=== PATIENT | female | born 1955 | race Caucasian/White ===

== ENCOUNTER 2017-02-26 19:08 | Inpatient (IN) ==
[2017-02-26 20:09] LABS: MANUAL DIFF NEEDED? NO
[2017-02-26 20:15] LABS: BASO% 0.3 % (0.0-0.8); EOS# 0.45 X1000 (0.0-0.7); EOS% 3.7 % (0.0-10.0); HEMATOCRIT 37.6 % (37.0-47.0); HEMOGLOBIN 12.3 g/dL (12.0-16.0); IMM GRAN# 0.02 X1000 (0.0-0.04); IMM GRAN% 0.2 % (0.0-0.5); LYMPH% 35.7 % (20.5-51.1); MCH 27.6 PG (27-31); MCHC 32.7 g/dL (33-37); MCV 84.3 FL (81-99); MONO# 0.79 X1000 (0.11-0.59); MONO% 6.6 % (1.7-9.3); MPV 9.5 FL (7.4-10.4); NEUT% 53.5 % (42.2-75.2); PLT 343 X1000 (130-400); RBC 4.46 XMIL (4.2-5.4)
[2017-02-26 20:21] LABS: INR 1.07; PROTIME 11.3 Seconds (9.2-11.7); PTT 25.4 Seconds (22.0-36.0)
[2017-02-26] MEDS ORDERED: MORPHINE IV ONE (20:30)
[2017-02-26] MEDS ORDERED: NITROGLYCERIN TOP ONE (20:30)
[2017-02-26] MEDS ORDERED: ZOFRAN IV ONE (20:30)
--- NOTE | 2017-02-26 20:35 | PROVIDER DOCUMENTATION ---
HPI-Chest Pain - General Chief Complaint: Chest Pain Stated Complaint: cp Time Seen by Provider: 02/26/17 20:21 Allergies/Adverse Reactions: Patient Allergies Allergy/AdvReac Type Severity Reaction Status Date / Time metronidazole [From Flagyl] Allergy ITCHING Verified 02/26/17 20:22 Home Medications: Home Medication List Medication Instructions Recorded Confirmed Last Taken Type Insulin Lispro [Humalog] 10 unit SUBQ TID 04/26/13 12/22/16 12/21/16 19:00 History Metformin [Glucophage] 1,000 mg PO BID 04/26/13 12/22/16 12/21/16 19:00 History Metoprolol [Lopressor] 25 mg PO DAILY 04/26/13 12/22/16 12/22/16 06:30 History Glimepiride 4 mg PO DAILY 10/19/16 12/22/16 12/21/16 19:00 History Insulin Glargine [Lantus] 28 unit SUBQ QHS 10/19/16 12/22/16 12/21/16 19:00 History Aspirin 81 mg PO DAILY 12/21/16 12/22/16 12/14/16 09:00 History Atorvastatin Calcium [Lipitor] 40 mg PO QHS 12/21/16 12/22/16 12/22/16 05:00 History Escitalopram Oxalate [Lexapro] 20 mg PO DAILY 12/21/16 12/22/16 12/22/16 05:00 History Famotidine 40 mg PO DAILY 12/21/16 12/22/16 12/22/16 06:30 History Fluticasone/Vilanterol [Breo 1 each IH DAILY 12/21/16 12/22/16 12/21/16 09:00 History Ellipta 100-25 Mcg INH] Lorazepam 0.5 mg PO PRN PRN 12/21/16 12/22/16 12/22/16 05:00 History Montelukast Sodium [Singulair] 10 mg PO DAILY 12/21/16 12/22/16 12/22/16 05:00 History Omeprazole [Prilosec] 40 mg PO DAILY 12/21/16 12/22/16 12/21/16 21:00 History Hydrocodone/APAP 10 mg/325 mg 1 each PO Q4H PRN PRN #20 tablet 12/23/16 Unknown Rx [Berwick-10] Ondansetron HCl [Zofran] 4 mg PO Q4H PRN PRN #10 tablet 12/23/16 Unknown Rx - History of Present Illness-CP Nature of Presenting Problem: Pt comes in s/p charan in Nov. stating that she has just not felt well since then. She has had N/V/D since then. PT started tonight stating that she "just didn't feel right" she states that she feels like her "heart just doesn't feel right" she said that there was some pain that felt similar to when she had her CABG and that it radiated to her back. Review of Systems - Adult - REVIEW OF SYSTEMS - ADULT Constitutional: reports: no symptoms reported. denies: chills, fever, fatique, night sweats, weight gain, weight loss Eyes: reports: no symptoms reported. denies: discharge, dry eyes, decreased vision, blurred vision, double vision, eye pain, redness Ears, Nose, Mouth & Throat: reports: no symptoms reported. denies: ear discharge, ear pain, hearing loss, tinnitus, epistaxis, sinus problem, nose pain , mouth/dental pain, mouth swelling, hoarseness, throat pain, throat swelling Cardiovascular: reports: see HPI, chest pain, orthopnea, palpitations. denies: edema, heart murmur, irregular heart rate, poor circulation, PND, syncope Respiratory: reports: see HPI, cough, shortness of breath. denies: chronic cough, dyspnea on exertion, excessive sputum production, hemoptysis, pleurisy, wheezing Gastrointestinal: reports: see HPI, diarrhea, nausea, poor appetite, vomiting. denies: abdominal pain, hematemesis, constipation, difficulty swallowing, frequent heartburn, rectal bleeding Genitourinary: reports: no symptoms reported. denies: dysuria, frequency, flank pain, frequent UTI's, hematuria, hesitency, incontinence, urinary retention, urgency Musculoskeletal: reports: no symptoms reported. denies: bone pain, back pain, frequent leg cramps, joint pain, joint swelling, muscle aches, muscle weakness, neck pain Integumentary: reports: no symptoms reported. denies: hives, hair loss, itching , mole changes, nail changes, rash, skin sores/ulcer, skin thickening Neurological: reports: see HPI, dizziness/vertigo. denies: ataxia, headache/ migraines, loss of balance, numbness, seizure, slurred speech, syncope, tremors Psychiatric: reports: no symptoms reported. denies: anxiety, anti-depressant use, alcohol/drug dependence, depression, emotional problems, insomnia, panic attacks, suicidal thoughts Endocrine: reports: no symptoms reported. denies: change in skin pigment, excessive sweating, goiter, cold intolerance, heat intolerance, increased hunger , increased thirst, polyuria Hematologic/Lymphatic: reports: no symptoms reported. denies: blood clots, easy bruising, lymphedema, swollen lymph nodes, transfusions Allergic/Immunologic: reports: no symptoms reported. denies: allergic reactions , allergic rhinitis, asthma, eczema, frequent infections, hives, positive PPD, urticaria All Other Systems: Reviewed and Negative Past History - Adult - PAST MEDICAL HISTORY-ADULT Review of Records: reports: Old Records Reviewed, Nursing Assessment Review, Medications Reviewed, Social history reviewed & non-contributory. Major Childhood Illnesses: reports: denies history Cardiovascular: reports: CAD, HTN, hyperlipidemia, MS Respiratory: reports: denies history Gastrointestinal: reports: denies history Obstetrical/Gynecological: reports: denies history Genitourinary: reports: denies history Musculoskeletal: reports: denies history Neurological: reports: denies history Psychiatric: reports: depression Endocrine/Immune: reports: Diabetes Other Conditions: reports: denies history - PRIOR SURGERIES/PROCEDURES Surgical/Procedure History: reports: CABG, cholecystectomy, cardiac stent (x 3 years ago), hernia repair - IMMUNIZATION STATUS Childhood Immunizations: See Nurse Assessment Flu Vaccine: See Nurse Assessment - FAMILY HISTORY Family History: reviewed, not pertinent - SOCIAL HISTORY Smoking: denies Substance Use: none/never Alcohol Use Frequency: never Living Situation: family Physical Exam-General - PHYSICAL EXAM-ADULT Initial Vital Signs Reviewed: Yes - CONSTITUTIONAL General Appearance: alert, no apparent distress, anxious - EYES Eyes: PERRL/EOMI, pink conjunctivae - HEAD, EARS, NOSE, MOUTH & THROAT HENMT: normocephalic/atraumatic, moist mucous membranes, normal ENT inspection, TMs normal, pharynx normal - NECK Neck: non-tender, full range of motion, supple, normal inspection - RESPIRATORY Respiratory: chest non-tender, lungs clear, normal breath sounds, no pleuratic chest pain, no respiratory distress, no accessory muscle use - CARDIOVASCULAR Cardiovascular: normal peripheral pulses, regular rate, rhythm, no edema, no gallop, no JVD, no murmur - GASTROINTESTINAL (ABDOMEN) Abdominal Exam: normal bowel sounds, non tender, soft, no organomegaly, no pulsatile mass - LYMPHATIC Lymphatic: no adenopathy - MUSCULOSKELETAL Back Exam: normal inspection, no CVA tenderness, no vertebral tenderness Extremity: normal range of motion, non-tender, normal gait, normal inspection, no pedal edema, no calf tenderness, normal capillary refill, pelvis stable - SKIN Integumentary: normal color, normal turgor, warm/dry - NEUROLOGIC Neurologic: 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, no motor/sensory deficits - PSYCHIATRIC Psych/Mental Status: normal thought content, normal thought process, oriented x 3, anxious Progress - PLAN OF CARE/RESULTS Progress/Plan/Lab Results: Vital Signs - 8 hr 02/26/17 19:21 Temperature 98.0 F Pulse Rate 103 H Respiratory Rate 20 Blood Pressure 142/78 O2 Sat by Pulse Oximetry 98 Laboratory Results - last 24 hr 02/26/17 02/26/17 02/26/17 19:21 19:21 19:21 WBC 12.03 H RBC 4.46 Hgb 12.3 Hct 37.6 MCV 84.3 MCH 27.6 MCHC 32.7 L RDW Std Deviation 14.2 Plt Count 343 MPV 9.5 Immature Gran % (Auto) 0.2 Neut % (Auto) 53.5 Lymph % (Auto) 35.7 Lasalle % (Auto) 6.6 Eos % (Auto) 3.7 Baso % (Auto) 0.3 Immature Gran # (Auto) 0.02 Neut # (Auto) 6.43 Lymph # (Auto) 4.30 H [place] # (Auto) 0.79 H Eos # (Auto) 0.45 Baso # (Auto) 0.04 PT INR PTT (Actin FS) D-Dimer 0.36 Sodium 135 L Potassium 4.5 Chloride 95 L Carbon Dioxide 5 L Anion Gap 35 BUN 10 Creatinine 0.6 Estimated GFR/1.73 m2 > 60 BUN/Creatinine Ratio 17 Glucose 281 H Calculated Osmolality 279 Calcium 9.7 Magnesium 1.4 L Total Bilirubin 0.27 AST 50 H ALT 28 Alkaline Phosphatase 63 Creatine Kinase 31 Troponin T Lqs-T-Tyokltaxdru Pept Total Protein 7.2 Albumin 4.1 Globulin 3.1 Albumin/Globulin Ratio 1.3 02/26/17 02/26/17 02/26/17 19:21 19:21 19:21 WBC RBC Hgb Hct MCV MCH MCHC RDW Std Deviation Plt Count MPV Immature Gran % (Auto) Neut % (Auto) Lymph % (Auto) Lasalle % (Auto) Eos % (Auto) Baso % (Auto) Immature Gran # (Auto) Neut # (Auto) Lymph # (Auto) Las[place] # (Auto) Eos # (Auto) Baso # (Auto) PT 11.3 INR 1.07 PTT (Actin FS) 25.4 D-Dimer Sodium Potassium Chloride Carbon Dioxide Anion Gap BUN Creatinine Estimated GFR/1.73 m2 BUN/Creatinine Ratio Glucose Calculated Osmolality Calcium Magnesium Total Bilirubin AST ALT Alkaline Phosphatase Creatine Kinase Troponin T < 0.010 Ubs-Y-Txeheyvwufi Pept 86 Total Protein Albumin Globulin Albumin/Globulin Ratio 02/26/17 22:55 WBC RBC Hgb Hct MCV MCH MCHC RDW Std Deviation Plt Count MPV Immature Gran % (Auto) Neut % (Auto) Lymph % (Auto) Lasalle % (Auto) Eos % (Auto) Baso % (Auto) Immature Gran # (Auto) Neut # (Auto) Lymph # (Auto) [place] # (Auto) Eos # (Auto) Baso # (Auto) PT INR PTT (Actin FS) D-Dimer Sodium Potassium Chloride Carbon Dioxide Anion Gap BUN Creatinine Estimated GFR/1.73 m2 BUN/Creatinine Ratio Glucose Calculated Osmolality Calcium Magnesium Total Bilirubin AST ALT Alkaline Phosphatase Creatine Kinase Troponin T < 0.010 Rhd-W-Ypkzpdkpiwy Pept Total Protein Albumin Globulin Albumin/Globulin Ratio Orders Category Date Time Status Admit - [facility] Routine AdmDCTranf 02/27/17 00:21 Ordered Activity - Up Ad Miesha ORDERED Care 02/27/17 00:21 Active Call Provider ROUTINE Care 02/27/17 00:21 Active Cardiac Monitoring DIRECTED Care 02/26/17 20:02 Completed FSBS/Accucheck Result AC + HS Care 02/27/17 00:21 Active Neurological Check PRN Care 02/27/17 00:21 Active Saline Loc NOW Care 02/26/17 20:02 Completed Vital Signs Order Q 8-HR .ASSESS Care 02/27/17 00:21 Active Diabetic Diet Diet 02/27/17 Breakfast Active CHEST-PORTABLE [RAD] Stat Exams 02/26/17 20:09 Taken BMP [BASIC METABOLIC PANEL] [CHEM] Stat Lab 02/27/17 00:10 Uncollected CBC WITH ELECTRONIC DIFF [HEME] Stat Lab 02/26/17 19:21 Completed CBC WITH NO DIFF [HEME] Routine Lab 02/27/17 06:00 Ordered CK PROFILE [SP CHEM] Routine Lab 02/27/17 06:00 Ordered CK PROFILE [SP CHEM] Stat Lab 02/26/17 19:21 Completed COMPREHENSIVE METABOLIC PANEL [CHEM] Routine Lab 02/27/17 06:00 Ordered COMPREHENSIVE METABOLIC PANEL [CHEM] Stat Lab 02/26/17 19:21 Completed D-DIMER [CHEM] Stat Lab 02/26/17 19:21 Completed Ketone [ACETONE SERUM] [CHEM] Stat Lab 02/27/17 00:11 Uncollected LACTATE, PLASMA [CHEM] Urgent Lab 02/27/17 00:11 Uncollected MAGNESIUM [CHEM] Stat Lab 02/26/17 19:21 Completed PRO B-NATRIURETIC PEPTIDE Stat Lab 02/26/17 19:21 Completed PROTIME WITH INR [COAG] Stat Lab 02/26/17 19:21 Completed PTT [COAG] Stat Lab 02/26/17 19:21 Completed TROPONIN T Routine Lab 02/27/17 06:00 Ordered TROPONIN T Stat Lab 02/26/17 19:21 Completed TROPONIN T Stat Lab 02/26/17 22:55 Completed 0.9% Sodium Chloride Inj [Ns] 1,000 ml Med 02/27/17 00:21 Active IV 75 mls/hr 0.9% Sodium Chloride Inj [Ns] 500 ml Med 02/26/17 21:51 Discontinued IV 999 mls/hr Acetaminophen [Tylenol] Med 02/27/17 00:21 Active 650 mg PO Q6H PRN PRN Aspirin EC Med 02/27/17 09:00 Active 81 mg PO DAILY Hydralazine [Apresoline] Med 02/26/17 21:51 Discontinued 10 mg IV NOW ONE Insulin Human Regular [Humulin R] Med 02/27/17 07:00 Ordered See Protocol SUBQ 0700,1100,1600,2100 LISINOpril [Prinivil] Med 02/27/17 09:00 Ordered 10 mg PO DAILY Magnesium Oxide [Mag-Ox] Med 02/26/17 21:15 Discontinued 800 mg PO NOW ONE Morphine Med 02/26/17 20:30 Discontinued 2 mg IV NOW ONE Morphine Med 02/27/17 00:21 Active 2 mg IV Q4H PRN PRN Nitroglycerin Med 02/26/17 20:30 Discontinued 1 inch TOP NOW ONE Nitroglycerin Med 02/27/17 00:21 Ordered 1 inch TOP Q6H Ondansetron [Zofran] Med 02/26/17 20:30 Discontinued 4 mg IV NOW ONE Ondansetron [Zofran] Med 02/27/17 00:21 Active 4 mg IV Q4H PRN PRN Pantoprazole [Protonix] Med 02/27/17 00:21 Ordered 40 mg IV Q24H Sodium Chloride 0.9% Med 02/27/17 00:21 Ordered 10 ml INJ DIRECTED Telemetry [OM.EQ] Routine Oth 02/27/17 00:21 Active Echo Spec/Color Dop W/O Contra Routine Ther 02/27/17 08:00 Ordered Transfer/Admit Order [TRANSFER] Routine Transfer 02/26/17 23:13 Completed Transfer/Admit Order [TRANSFER] Routine Transfer 02/26/17 23:53 Completed Result Diagrams: 02/26/17 19:21 02/26/17 19:21 - XRAY 1 XRAY Study: Chest Impression: Normal XRAY Interpretation: elevated right hemidiaphram (hcb) - CONSULTS/PCP/HOSPITALIST Notification #1 *Consult/PCP/Hospitalist*: penot Consult Disposition: Will see in ED, Admit Departure - Departure Time of Disposition Decision: 00:32 DIAGNOSIS: Chest pain Qualifiers: Chest pain type: unspecified Qualified Code(s): R07.9 - Chest pain, unspecified Disposition: ADMITTED INPATIENT 09 Certified Medical Emergency: Emergent Condition: Good
[2017-02-26 20:56] LABS: AGAP 35; ALBUMIN 4.1 g/dL (3.5-5.0); ALKALINE PHOSPHATASE 63 U/L (32-104); BUN 10 mg/dL (8-22); CALCIUM 9.7 mg/dL (8.8-10.2); CHLORIDE 95 mmol/L (98-107); CK PROFILE 31 U/L (24-173); COSMO 279; GOT 50 U/L (10-30); GPT 28 U/L (10-36); MAGNESIUM 1.4 mg/dL (1.5-2.7); POTASSIUM 4.5 mmol/L (3.5-5.1); SODIUM 135 mmol/L (136-145); TCO2 5 mmol/L (25-35); TOTAL BILIRUBIN 0.27 mg/dL (0.20-1.00); TOTAL PROTEIN 7.2 g/dL (6.3-8.3)
[2017-02-26] MEDS ORDERED: MAG-OX PO ONE (21:15)
[2017-02-26] MEDS ORDERED: APRESOLINE IV ONE (21:51)
[2017-02-26] MEDS ORDERED: NS 500 ML IV ONE (21:51)
--- NOTE | 2017-02-26 22:13 | ED EKG INTERP ---
This chart was entered by Raquel Simmons Scribe, acting as scribe for Yayo Teresa MD. EKG Interpretation - EKG Time of EKG reading by physician:: 19:11 EKG Read and Signed by:: Yayo Teresa EKG Interpretation (*Must complete 3 of following elements*): Abnormal ( Possible anterior infarct, age undetermined) Rate: 107 Rhythm: Sinus tachycardia This chart was documented by the indicated scribe, (Raquel Simmons Scribe) and accurately reflects the services I performed and decisions made by Malick leong Robert H., MD, as attested by the provider's signature.
[2017-02-27] MEDS ORDERED: ZOFRAN IV PRN (00:21)
[2017-02-27] MEDS ORDERED: MORPHINE IV PRN (00:21)
[2017-02-27] MEDS ORDERED: NS 1,000 ML IV ONE (00:21)
[2017-02-27] MEDS: SODIUM CHLORIDE 0.9% INJ SCH (01:27)
[2017-02-27] MEDS: NITROGLYCERIN TOP SCH ×4 (01:28→18:11)
[2017-02-27] MEDS: PROTONIX IV SCH (01:35)
[2017-02-27 02:53] LABS: AGAP 16; BUN 9 mg/dL (8-22); CALCIUM 9.3 mg/dL (8.8-10.2); CHLORIDE 98 mmol/L (98-107); COSMO 281; POTASSIUM 4.4 mmol/L (3.5-5.1); SODIUM 137 mmol/L (136-145); TCO2 23 mmol/L (25-35)
--- NOTE | 2017-02-27 04:11 | HISTORY AND PHYSICAL ---
CHIEF COMPLAINT: Diarrhea and chest pain. HISTORY OF PRESENT ILLNESS: A 61-year-old female with history of CAD status post CABG. She has been having intermittent nausea, vomiting and diarrhea since her cholecystectomy earlier this year for which she has had in November. She had gastroparesis and this has been followed by Dr. Soriano. In any case, she had several episodes of diarrhea today. She did not do well but then she started developing chest pain in the midsternum radiating to the left and to the back. The back pain component is similar to her previous angina, anginal equivalent when she had her CABG in about 5 years ago. Pain is sharp, intense and it radiates as described. Some nausea as well. Pain has essentially resolved after treatment. She got nitroglycerin, morphine, hydralazine because she has been hypertensive. Patient placed in observation for chest pain. PAST MEDICAL HISTORY: 1. Diabetes, does look insulin dependent. 2. CAD status post CABG. 3. Dyslipidemia. 4. Gastroparesis. PAST SURGICAL HISTORY: She has had a cholecystectomy this year, 2014. CABG was in I guess 2011. FAMILY HISTORY: Positive for CAD in father, mother and 2 brothers. Father also had lung cancer but he in his 90s. Mother had an aneurysm when she was around 48, presumably thoracic or abdominal. SOCIAL HISTORY: No tobacco or ethanol. ALLERGIES: Metronidazole. MEDICATIONS: List is being compiled. REVIEW OF SYSTEMS: Otherwise negative. All other systems reviewed. PHYSICAL EXAMINATION: VITAL SIGNS: Blood pressure 142/78, heart rate of 103, respiratory rate of 20, temperature 98 degrees. GENERAL: A well-developed female, no acute distress. HEAD: Normocephalic, atraumatic. EYES: Pupils equal, round, reactive to light. Extraocular movements were intact. EAR/NOSE/THROAT: She had moist mucous membranes. NECK: Supple. CARDIOVASCULAR: Regular rate and rhythm. No murmurs, gallops, or rubs. PULMONARY: Exam with bilateral breath sounds. Clear to auscultation. GASTROINTESTINAL: Soft, nontender, nondistended. Bowel sounds are positive. EXTREMITIES: No clubbing or cyanosis. LYMPHATIC: No peripheral edema. NEUROLOGICAL: Nonfocal. LABORATORY DATA: Mag of 1.4. Glucose 281. White count 12. EKG was really I think unremarkable. I did not appreciate any profound ischemic changes, just sinus tachycardia. We did a chest x-ray and I believe reportedly no airspace disease. ASSESSMENT: A 61-year-old female with coronary artery disease status post coronary artery bypass graft presenting with chest pain. PROBLEM: 1. Chest pain. It is atypical but it is similar to her anginal equivalent so we will rule out and follow clinically. She reports having a stress test and it looks like she had one in it looks like October, about 4 months ago, and I believe that was negative. She had an echo but she has not had one in 2 years here, but her stress test looked normal. She had a stress test about 4 months ago which was negative. EF was good. So we will get Cardiology opinion tomorrow after rule out. I imagine she probably can go home. Repeat her echo. 2. Hypertension is not well controlled at least not currently. She has responded to nitroglycerin. At home she is just on metoprolol but she is not taking anything for kidney function. I am going to start an HERIBERTO inhibitor on her just because of her diabetic history. 3. Gastroesophageal reflux disease, gastroparesis. We will continue her medication. She has had chronic GI issues. She is being followed by Dr. Soriano and Dr. Chowdary. We will continue to monitor. cc: MD Royal Gannon MD
[2017-02-27] MEDS: HUMULIN R SUBQ SCH ×4 (06:33→21:00)
[2017-02-27 06:48] LABS: HEMATOCRIT 35.7 % (37.0-47.0); HEMOGLOBIN 11.3 g/dL (12.0-16.0); MCH 27.6 PG (27-31); MCHC 31.7 g/dL (33-37); MCV 87.3 FL (81-99); MPV 9.2 FL (7.4-10.4); RBC 4.09 XMIL (4.2-5.4)
[2017-02-27 07:00] LABS: AGAP 12; ALBUMIN 3.7 g/dL (3.5-5.0); ALKALINE PHOSPHATASE 50 U/L (32-104); BUN 8 mg/dL (8-22); CALCIUM 8.9 mg/dL (8.8-10.2); CHLORIDE 103 mmol/L (98-107); CK PROFILE 25 U/L (24-173); COSMO 282; GOT 43 U/L (10-30); GPT 26 U/L (10-36); POTASSIUM 4.7 mmol/L (3.5-5.1); SODIUM 139 mmol/L (136-145); TCO2 24 mmol/L (25-35); TOTAL BILIRUBIN 0.37 mg/dL (0.20-1.00); TOTAL PROTEIN 6.6 g/dL (6.3-8.3)
[2017-02-27] MEDS: ASPIRIN EC PO SCH (08:17)
[2017-02-27] MEDS: PRINIVIL PO SCH (08:17)
--- NOTE | 2017-02-27 11:27 | Diag Imaging Result Document ---
PROCEDURE NAME: CHEST-PORTABLE - 02/26/2017 PORTABLE CHEST X-RAY: COMPARISON: 10/19/2016. FINDINGS: Lung volumes are severely low with right hemidiaphragm elevation, similar to prior. Stable CABG changes. Heart size and pulmonary vascularity is normal. The lungs are grossly clear. IMPRESSION: No acute disease or significant change from prior.
--- NOTE | 2017-02-27 12:55 | PROGRESS NOTE ---
DATE: 02/27/2017 SUBJECTIVE: She was admitted for early this morning for Dr. Villafana. A 61-year-old with history of coronary artery disease status post CABG. She has been having intermittent nausea, vomiting, and diarrhea since her cholecystectomy earlier this year, but yesterday got pain that started in the mid chest and it radiated to the back. She said it was similar to the pain she had before she had her stents back in 2011, I believe. She had a cholecystectomy in November. She has had some abdominal bloating. She is followed by Dr. 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 She had several episodes of diarrhea a day. She started developing the midsternal chest discomfort that went to the back and it got pretty severe. Because she graded it to a similar pain in which she had previous angina. Before she had her CABG about 5 years ago. Pain was sharp and radiates to the back with nausea. It essentially resolved after some nitroglycerin, morphine, and hydralazine because she was hypertensive. PAST MEDICAL HISTORY: 1. Diabetes mellitus, type 2. 2. Coronary artery disease. 3. Dyslipidemia. 4. Gastroparesis. PAST SURGICAL HISTORY: Status post cholecystectomy in 2014, CABG in 2011. Today, she says the pain is resolved. She is not having any pain at the present time. Feels pretty comfortable. She is not hungry. She has been eating well. She thinks she has lost about 10 pounds in the last couple of months. She says she just does not want to eat because of the discomfort and poor appetite. OBJECTIVE: Temperature is 98.0 degrees; remains afebrile. Pulse 70, respirations 16, blood pressure 128/69. CVP less than 6 cm. Lungs are clear in all lung bailey. Cardiovascular: Regular rhythm and rate without murmur or S3. Abdomen is soft. Skin is warm and dry. No pedal edema. LABORATORY DATA: Lab reviewed. White count 9,110. Hematocrit 35, platelet count 282,000. Chemistry: Sodium 139, potassium 4.7, chloride 103, bicarb 24, BUN 8, creatinine 0.5, blood sugar 256, 207, 200. Troponin was less than 0.01. CPK was 25. EKG. I read the report. Sinus tachycardia. Possible anterior infarct, age indeterminate. ASSESSMENT AND PLAN: 1. Chest pain, atypical, but similar to her anginal equivalent before in her memory. She had a stress test, I believe, in October, about 4 months ago, and it was negative by her report. She had an echo that was a couple of years ago. Cardiology to see. Enzymes are negative. EKG unremarkable. This also could be gastrointestinal or esophageal discomfort. 2. Hypertension. She presented with some hypertension, so we will start and HERIBERTO inhibitor and continue to control with her usual metoprolol. 3. Gastroesophageal reflux disease. Gastroparesis. Apparently, she had some symptoms with loose stools since her cholecystectomy, followed by Dr. Linda and Dr. Soriano. Continued to monitor. Hemoglobin is stable. Blood work looks good. Creatinine 0.5. 4. Diabetes mellitus, type 2. We will pattern her sugars and review her orders. She is getting Zofran p.r.n. She received some hydralazine IV, some morphine IV. She is comfortable at the present time. Protonix 40 mg IV q. 24 hours. Normal saline at 75 mL an hour. Nitroglycerin paste, 1 inch topically q.6. She gets morphine p.r.n., 2 mg. Prinivil 10 mg a day was started. She is on insulin sliding scale. Aspirin 81 mg a day. We will consult Cardiology and Dr. Soriano for Wednesday. Doppler was ordered to be repeated today. cc: Vasyl Barbosa MD
--- NOTE | 2017-02-27 13:59 | CONSULTATION ---
DATE OF CONSULTATION: 02/27/2017 INDICATION: Shoulder, back and chest discomfort. HISTORY OF PRESENT ILLNESS: Ms. Romero is a 61-year-old white female with a history of coronary disease, previous PCI and bypass. She presented for evaluation of a [id number]-ie-vasabtod discomfort occurring in her chest, as well as shoulder area and back. She is an extremely poor historian and wanders around quite a bit and has to be redirected in her history. It seems like she was sitting down and had some episodes of shoulder discomfort, as well as chest discomfort with no radiation. There was no exertional component to this. She had no diaphoresis and no shortness of breath. She seems to think that this was similar to pain that she had at the time of her PCI, but not at the time of her bypass. She gives a very difficult history of the discomfort that she had around the time of the PCI and so it certainly seems like she may have had this discomfort, but there were other components of the discomfort that were not present. This symptom persisted for around 30 minutes to 1 hour. She also had some issues with difficulty in her mentation. There was no overt syncope, but she has a very difficult time recalling events that occurred around the time that she came to the hospital. Notably, she had her gallbladder removed in November, and since that time has had quite a bit of nausea, vomiting, as well as diarrhea. Apparently, she was experiencing copious amounts of diarrhea the day of presentation. She had no food triggers associated with this event. She reports compliance with her medications. PAST MEDICAL HISTORY: 1. Diabetes. 2. Coronary artery disease with history of PCI and previous bypass. 3. Hyperlipidemia. 4. Gastroparesis. 5. Recent cholecystectomy. SOCIAL HISTORY: No current tobacco or alcohol use. She is . FAMILY HISTORY: Significant for hypertension. Father also had a history of lung cancer. Mother had an aneurysm around the age of 48. REVIEW OF SYSTEMS: A 10 system review of systems is negative, except for those things mentioned in HPI. PHYSICAL EXAMINATION: Vital Signs: She is afebrile. Heart rate of 94. Blood pressure most recently is 147/71. However, the majority of blood pressures during this hospitalization seem to have been controlled. General: Generally she is somewhat anxious, but in no acute distress. HEENT: Oropharynx is moist. Normal dentition. Eye examination shows pink conjunctivae, white sclerae. Neck: Examination shows no obvious thyromegaly or thyroid tenderness. Cardiovascular: She is in a regular rate and rhythm. She has no obvious murmur. No S3 is present. She has no lower extremity edema. Chest: Exam sounds clear to auscultation bilaterally. She has no increased work of breathing. Abdomen: Soft, nontender, nondistended. She has no obvious organomegaly. Skin Exam: Warm and dry throughout without any rashes. Neurological: She is moving all extremities well. Cranial nerves 2-12 are intact without any sensation deficits. Psychiatric: Alert and oriented and pleasant. Normal mood and affect. PERTINENT DATA: Her EKG shows sinus tachycardia. She has a no signs of infarct. No signs of ischemia. She had a chest x-ray performed yesterday around 8 p.m. demonstrating no evidence of acute disease. Laboratory data shows white count of 9.1, her hematocrit is 35.7, platelet count is 282. Sodium 137, potassium 4.4, BUN 9, creatinine 0.5, albumin is 3.7. Her proBNP yesterday was 86. ASSESSMENT: Chest discomfort in a patient with a history of previous percutaneous coronary intervention and bypass. PLAN: She recently had nuclear scanning in October that was unremarkable. She gives a history of symptoms somewhat similar to what she had at the time of her PCI. I would recommend cardiac catheterization at this point to delineate her coronary anatomy. She is an extremely difficult historian. I have restarted her metoprolol. In addition, I will restart her atorvastatin 40 mg at bedtime. She continues on aspirin for now. cc: Dean Grimaldo MD
[2017-02-27] MEDS: TYLENOL PO PRN (14:13)
[2017-02-27] MEDS: RANEXA PO SCH (21:02)
[2017-02-27] MEDS: LIPITOR PO SCH (21:02)
[2017-02-28] MEDS: NITROGLYCERIN TOP SCH ×4 (00:13→17:57)
[2017-02-28] MEDS: TYLENOL PO PRN ×2 (00:13→06:21)
[2017-02-28] MEDS: PROTONIX IV SCH (00:13)
[2017-02-28] MEDS: SODIUM CHLORIDE 0.9% INJ SCH (00:13)
[2017-02-28] MEDS: HUMULIN R SUBQ SCH ×4 (06:27→21:49)
[2017-02-28 07:00] LABS: HDL 30 mg/dL (45-65); LDL 76 mg/dL; TRIGLYCERIDES 137 mg/dL (35-135); VLDL 27 mg/dL
--- NOTE | 2017-02-28 08:43 | PROGRESS NOTE ---
DATE: 02/28/2017 SUBJECTIVE: She says she feels much better today. Feels much better, marked difference from yesterday. No nausea at the present time. Did have some nausea yesterday after eating. PHYSICAL EXAMINATION: Vital Signs: Temperature 97.7 degrees, pulse 88, respirations 20, blood pressure 114/77. HEENT: Pupils are equal and round. Lungs: Clear in all lung bailey. Cardiovascular Examination: Regular rhythm and rate without murmur or S3. Is and Os: Urine output was 1800 mL. LABORATORY DATA: Blood sugars 200, 242, and 286. Lab reviewed from the . ASSESSMENT AND PLAN: 1. Chest discomfort, history of previous percutaneous coronary intervention, bypass. Recently had a nuclear scan in October that was unremarkable. Gives a history of symptoms similar to the time she had her percutaneous coronary intervention and recommend we need to do a heart catheterization per cardiology. Restarted the metoprolol and restarted the atorvastatin at bedtime. 2. I suspect some gastroparesis with some nausea. That seems to be better. 3. Blood pressure, well controlled. 4. Diabetes mellitus type 2. Continue to follow sugars. 5. She is getting normal saline at 75 mL an hour, Ranexa 500 mg twice a day, Protonix 40 mg daily, metoprolol 25 mg daily, lisinopril 10 mg daily, aspirin 81 mg a day, Lipitor 40 mg at bedtime. Continue present regimen. cc: Vasyl Barbosa MD
[2017-02-28] MEDS: TOPROL XL PO SCH (09:36)
[2017-02-28] MEDS: RANEXA PO SCH ×2 (09:36→21:49)
[2017-02-28] MEDS: ASPIRIN EC PO SCH (09:36)
[2017-02-28] MEDS: PRINIVIL PO SCH (09:36)
--- NOTE | 2017-02-28 14:23 | PROGRESS NOTE ---
DATE: 02/28/2017 SUBJECTIVE: Ms. Romero has not had any chest pain overnight. PHYSICAL EXAMINATION: Vital signs: She is afebrile. Heart rates are in the 80s to 90s. Her blood pressures overnight predominantly were in the 110s systolic. General: She is in no acute distress. Cardiovascular: She is in a regular rate and rhythm. She has no obvious murmurs. No S3. She has no lower extremity edema. Chest: Clear bilaterally. She has no increased work of breathing. Abdomen: Soft, nontender. PERTINENT DATA: Triglycerides 137, total cholesterol 133, LDL 76, HDL 30. ASSESSMENT: Chest pain in a patient with a history of coronary disease and coronary bypass grafting. PLAN: We will proceed with cardiac catheterization in the morning. Risks, benefits, and alternatives were explained to the patient and she agrees to proceed. We will check an EKG in the morning as well as routine labs. cc: Dean Grimaldo MD
--- NOTE | 2017-02-28 14:38 | ECHO REPORT ---
ORDER DATE: 02/27/2017 INDICATION: Coronary artery disease. Chest pain. FINDINGS: 1. Right atrium is normal size at 3.4 cm. 2. Trace tricuspid regurgitation. RV systolic pressure of 37. 3. Normal RV size and systolic function. 4. Trace pulmonic insufficiency. 5. Normal left atrial size at 3.7 cm. 6. No mitral valve prolapse. No significant mitral regurgitation. No significant mitral stenosis. 7. Normal LV size, end-diastolic dimension of 3.1. Mild left ventricular hypertrophy with a posterior and interventricular septal wall thickness 1.3 cm each. Normal LV systolic function. Estimated EF is 65% with normal wall motion. 8. Aortic valve opens well and appears trileaflet. No evidence of stenosis or insufficiency. 9. Aorta appears normal in visualized segments. 10. No pericardial effusion seen. cc: MD Donavon Almonte MD
[2017-02-28] MEDS: LIPITOR PO SCH (21:49)
[2017-03-01] MEDS: NITROGLYCERIN TOP SCH ×4 (00:46→17:40)
[2017-03-01] MEDS: PROTONIX IV SCH (00:47)
--- NOTE | 2017-03-01 05:52 | EKG Report ---
Test Performed on : 02/28/2017 06:17:37 AM Test Reason : cp Blood Pressure : / mmHG Vent. Rate : 083 BPM Atrial Rate : 083 BPM P-R Int : 152 ms QRS Dur : 080 ms QT Int : 408 ms P-R-T Axes : 041 012 056 degrees QTc Int : 479 ms Sinus rhythm. with occasional premature ventricular complexes. Cannot rule out Anterior infarct (cited on or before 26-FEB-2017) Abnormal ECG When compared with ECG of 26-FEB-2017 19:11, (Unconfirmed) premature ventricular complexes. are now present Confirmed by Anton TOM, Anselmo Moon ([id number]) on 03/01/2017 7:53:49 PM
[2017-03-01 06:13] LABS: MANUAL DIFF NEEDED? NO
[2017-03-01] MEDS: HUMULIN R SUBQ SCH ×4 (06:16→20:45)
[2017-03-01 06:23] LABS: BASO% 0.5 % (0.0-0.8); EOS# 0.32 X1000 (0.0-0.7); HEMATOCRIT 35.1 % (37.0-47.0); HEMOGLOBIN 11.3 g/dL (12.0-16.0); IMM GRAN# 0.02 X1000 (0.0-0.04); IMM GRAN% 0.2 % (0.0-0.5); LYMPH# 2.77 X1000 (1.2-3.4); LYMPH% 34.4 % (20.5-51.1); MCH 27.6 PG (27-31); MCHC 32.2 g/dL (33-37); MCV 85.8 FL (81-99); MONO# 0.48 X1000 (0.11-0.59); MPV 9.4 FL (7.4-10.4); NEUT% 54.9 % (42.2-75.2); PLT 268 X1000 (130-400); RBC 4.09 XMIL (4.2-5.4)
[2017-03-01 06:26] LABS: INR 1.1; PROTIME 11.6 Seconds (9.2-11.7)
[2017-03-01 06:36] LABS: AGAP 13; BUN 11 mg/dL (8-22); CALCIUM 9.1 mg/dL (8.8-10.2); CHLORIDE 99 mmol/L (98-107); COSMO 284; POTASSIUM 4.9 mmol/L (3.5-5.1); SODIUM 136 mmol/L (136-145); TCO2 24 mmol/L (25-35)
--- NOTE | 2017-03-01 06:57 | EKG Report ---
Test Performed on : 03/01/2017 06:31:39 AM Test Reason : cp Blood Pressure : / mmHG Vent. Rate : 064 BPM Atrial Rate : 064 BPM P-R Int : 144 ms QRS Dur : 080 ms QT Int : 446 ms P-R-T Axes : -03 003 024 degrees QTc Int : 460 ms Normal sinus rhythm. Possible Septal infarct (cited on or before 26-FEB-2017) Abnormal ECG When compared with ECG of 28-FEB-2017 06:17, (Unconfirmed) premature ventricular complexes. are no longer present Confirmed by Anton TOM, Anselmo Moon ([id number]) on 03/01/2017 8:01:08 PM
--- NOTE | 2017-03-01 07:16 | EKG Report ---
Test Performed on : 02/26/2017 7:11:32 PM Test Reason : No Order in G[place]dit Blood Pressure : / mmHG Vent. Rate : 107 BPM Atrial Rate : 107 BPM P-R Int : 142 ms QRS Dur : 072 ms QT Int : 356 ms P-R-T Axes : -06 000 082 degrees QTc Int : 475 ms Sinus tachycardia. Possible Anterior infarct , age undetermined Abnormal ECG When compared with ECG of 19-OCT-2016 11:24, Vent. rate has increased BY 55 BPM QT has lengthened Unconfirmed Result
[2017-03-01] MEDS: RANEXA PO SCH ×2 (08:42→20:44)
[2017-03-01] MEDS: ASPIRIN EC PO SCH (08:42)
[2017-03-01] MEDS: PRINIVIL PO SCH (08:42)
[2017-03-01] MEDS: TOPROL XL PO SCH (08:43)
--- NOTE | 2017-03-01 10:11 | PROGRESS NOTE ---
DATE: 03/01/2017 SUBJECTIVE: Ms. Romero said that she does not feel as good as she did yesterday. Just feeling a little bit blah. No abdominal pain. No shortness of breath. Sugars have been running a little bit high. PHYSICAL EXAMINATION: Vital Signs: Temperature 98.3 degrees, pulse 69, respirations 16, blood pressure 139/55. HEENT: Pupils are equal and round. Lungs: Clear in all lung bailey. Cardiovascular Examination: Regular rhythm and rate without murmur or S3. Abdomen: Soft. Skin: Warm and dry. Is and Os: Good urine output of 1200 mL. Blood sugars have been 286, 259, and 316. LAB: White count 8050, hematocrit 35, platelet count 268,000. Sodium 136, potassium 4.9, chloride 99, bicarb 24, BUN 11, creatinine 0.7, blood sugars 265, 324, 316. ASSESSMENT AND PLAN: 1. Chest pain. History of coronary artery disease. Plan for heart catheterization today. The risks and benefits have been discussed by Dr. Grimaldo. 2. Gastroparesis. Aware. 3. Diabetes mellitus type 2. Sugars are running a little high. We will make an adjustment on the insulin. cc: Vasyl Barbosa MD
[2017-03-01] MEDS ORDERED: NITROGLYCERIN ONE (11:58)
[2017-03-01] MEDS ORDERED: HEPARIN 1000 UNITS/NS 2,000 UNIT/1,000 ML IV.SOLN ONE (11:58)
[2017-03-01] MEDS ORDERED: HEPARIN ONE (11:59)
[2017-03-01] MEDS ORDERED: NS 1,000 ML ONE (12:29)
[2017-03-01] MEDS ORDERED: CLAVE PUMP SET NO FILTER 12260 ONE (12:30)
[2017-03-01] MEDS ORDERED: CLAVE TWINSITE 32 IN 11959 ONE (12:33)
[2017-03-01] MEDS ORDERED: DILAUDID ONE (12:36)
[2017-03-01] MEDS ORDERED: VERSED ONE (12:36)
[2017-03-01] MEDS ORDERED: HEPARIN 1000 UNITS/NS 1,000 UNIT/500 ML IV.SOLN ONE (12:43)
[2017-03-01] MEDS ORDERED: LABETALOL ONE (13:39)
[2017-03-01] MEDS ORDERED: APRESOLINE ONE (14:00)
--- NOTE | 2017-03-01 14:47 | CARDIAC CATH REPORT ---
PROCEDURE NAME: - INDICATION: Patient with chest pain. Recent normal nuclear stress test. Pain is continuing. She has a history of bypass. PROCEDURES PERFORMED: 1. Selective coronary angiography. 2. Internal mammary artery angiography. 3. Saphenous vein graft angiography. PROCEDURE IN DETAIL: Ms. Romero was brought to the catheterization laboratory in fasting state. Initial catheterization attempt was made via the left radial. A 5-Israeli sheath was placed via true Seldinger technique with radial cocktail administered. Catheters were introduced. ANTHONY angiography was performed via the left radial via JR4 catheter. We will unable to cannulate the right coronary or left coronary from the left arm. Attention was then turned to the right groin. It was prepped and draped. 5-Israeli sheath was placed via modified Seldinger technique. Catheters were introduced. Hemodynamic measurements made in the ascending thoracic aorta. Coronary angiography was performed in multiple views using JL3.5 and JR4 diagnostic catheters. The JR4 was used to obtain shots of the saphenous vein graft to the circumflex. The JL 3.5 was used obtained images of the left coronary. At conclusion of procedure, all sheaths and catheters were removed in the left radial. TR band was left inflated at 10 mL of air with good capillary refill, good hemostasis. The right femoral sheath was left in place pending a CT. FINDINGS: 1. The left main has a severe ostial lesion on the order of 80-90%. The early left anterior descending appears to be occluded. The vessel reconstitutes distally from the ANTHONY which appears that the distal left anterior descending is a very small vessel with mild luminal irregularities diffusely. 2. Circumflex originates from the left main. The proximal and midvessel appear to have severe in- stent stenosis and a long area of stented vessel. The distal portions of the circumflex as well as the obtuse marginal visualized through injection of the vein graft appears to be patent with minimal luminal irregularities noted in the distal vessel. 3. Right coronary artery originates from the right coronary cusp. It appears to be normal in the proximal and midvessel with mild luminal irregularities in the distal. 4. The ANTHONY to the LAD is patent. 5. The ANTHONY to the saphenous vein graft is a large graft in very good condition. 6. Aortic blood pressure 127/76. ASSESSMENT: Ms. Romero is a 61-year-old white female who had a recent normal nuclear stress test in October but presented with continued episodes of chest discomfort. PLAN: Cardiac catheterization was undertaken to delineate her coronary anatomy. She appears to have no significant lesions to suggest a ischemic etiology of her chest discomfort. Certainly this could be a continued symptom related to her gallbladder which has continued to cause significant amounts of nausea and diarrhea. Presently, she will be pending transfer up to the [facility] at which point her ACT will be redrawn and when below 165 we can pull the sheath. She will then have usual bedrest. cc: Dean Grimaldo MD
[2017-03-01] MEDS ORDERED: D5 1/2 NS 500 ML IV ONE (16:00)
[2017-03-01] MEDS: HUMULIN 70/30 SUBQ SCH (18:04)
--- NOTE | 2017-03-01 18:54 | CONSULTATION ---
DATE OF CONSULTATION: 03/01/2017 REASON FOR CONSULTATION: For evaluation of this patient with abdominal pain, nausea, vomiting, and diarrhea. HISTORY OF PRESENT ILLNESS: This patient is known to me from outpatient visits. The patient said that she had been having nausea, vomiting, and diarrhea since her cholecystectomy in November. The patient was sent to me by Dr. Linda to evaluate her. She actually did not want to have a colonoscopy when I suggested a colonoscopy, because she had a colonoscopy by Dr. Linda last year. The patient had apparently some minor inflammation which she got better. The patient had an esophagogastroduodenoscopy done by me that showed mild reflux esophagitis and mild gastritis. There was no gastric retention. The biopsy was negative for Helicobacter pylori infection. She was already on omeprazole, which I continued. The patient had subsequently gastric emptying study done, which was normal. The patient said that since about Wednesday she has become more sick with a lot of diarrhea. She has multiple bowel movements with no blood or mucus in it. She had been complaining of chronic diarrhea and also she had a history of chronic anemia. PAST MEDICAL HISTORY: 1. Diabetes mellitus. She is insulin-requiring now. 2. Coronary artery disease, status post coronary artery bypass surgery. 3. Dyslipidemia. 4. Questionable gastroparesis. The last gastric emptying study was showing prompt emptying. 5. Allergic rhinitis. 6. Ischemic heart disease. 7. Asthma. 8. Diabetes mellitus. PAST SURGICAL HISTORY: Cholecystectomy on 12/22/2016. She had chronic cholecystitis and cholelithiasis. Coronary artery bypass surgery in 2011. Hernia repair in 2012. 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 Hysterectomy in the past. ALLERGIES: No known drug allergies. FAMILY HISTORY: Father had mouth cancer. There is history of heart disease, kidney disease, and diabetes in the family. REVIEW OF SYSTEMS: Gastrointestinal: Appetite has been poor. She said that at home her blood sugars had been better, but now the blood sugar is quite high today in 350s. She is on Humalog insulin now and she has stopped taking the metformin because she thought it irritates her stomach. There is generalized abdominal pain present with frequent liquid stools. She also has chest pain when all these things started. PHYSICAL EXAMINATION: Vital Signs: The pulse is 66 per minute, respiratory rate is 18, the temperature is 98.1 degrees, blood pressure is 133/56. Skin: Warm and dry. She looks pale. HEENT: Mucous membranes are moist. Neck: Supple. There is no thyromegaly. Cardiac: Both heart sounds are heard. Rhythm is regular. I could not hear any murmur. Lungs: Clear to percussion and auscultation. No wheezing present. Abdomen: Soft, not distended, nontender. No masses felt. Bowel sounds were heard. Extremities: Free of any edema. LAB DATA: Her WBC count is 8.05, hemoglobin 11.3, hematocrit 35.1. The platelet count is 268,000. Sodium is 136, potassium 4.9, chloride is 99, CO2 is 24, BUN is 11, creatinine 0.7. Glucose has been remaining quite high today so was 324 and 361. The LFTs are all normal. IMPRESSION: 1. Nausea, vomiting, and diarrhea. 2. Chest pain. RECOMMENDATION: This patient needs a colonoscopy. The last colonoscopy was in 2013; however, currently she has possibility of ischemic heart disease. Dr. Dean Grimaldo is on the case and he is trying to do cardiac catheterization. GI will standby for the time being and observe the patient. Once the heart is cleared, we will plan for GI workup later as an inpatient or as an outpatient. cc: MD Dean Sanabria MD Allen J. Schmidt, MD
[2017-03-01] MEDS: LIPITOR PO SCH (20:44)
[2017-03-02] MEDS: NITROGLYCERIN TOP SCH ×3 (00:06→12:13)
[2017-03-02] MEDS: HUMULIN R SUBQ SCH ×2 (06:25→11:27)
[2017-03-02] MEDS: HUMULIN 70/30 SUBQ SCH (06:25)
[2017-03-02] MEDS: PROTONIX IV SCH (06:25)
[2017-03-02] MEDS: RANEXA PO SCH (08:45)
[2017-03-02] MEDS: ASPIRIN EC PO SCH (08:45)
[2017-03-02] MEDS: TOPROL XL PO SCH (08:45)
[2017-03-02] MEDS: PRINIVIL PO SCH (08:46)
--- NOTE | 2017-03-02 09:44 | PROGRESS NOTE ---
DATE: 03/02/2017 SUBJECTIVE: Ms. Romero had a heart catheterization yesterday done by Dr. Dean Grimaldo. Cardiac cath was done to delineate coronary anatomy. She appears to have no significant lesions to suggest ischemic etiology to her chest discomfort. Certainly this could be symptoms related to her gallbladder which continue to cause significant amounts of nausea and diarrhea, and we will pursue with GI's help may be looking at gallbladder. Dr. Soriano was consulted yesterday. He recommended she needed colonoscopy; last colonoscopy was in 2013. She is feeling better. We will discuss discharge plans with the team. Official reading of the heart catheterization: Left main with severe ostial lesion in the order of 80% to 90%. The early left anterior descending appears to be occluded. The vessels reconstitute distally from an internal mammary artery. It appears that the distal left anterior descending is a very small vessel with mild luminal irregularities. Circumflex with no new lesions. Right coronary appears to be normal. OBJECTIVE: General: On exam today she feels good, awake and alert. Vital signs: Temperature 98.3 degrees, pulse 74, respirations 16, blood pressure 127/57. HEENT: The pupils are equal and round. CVP less than 6 cm. Lungs: Clear in all lung bailey. Cardiovascular exam: Regular rhythm and rate without murmur or S3. Abdomen: Soft. Skin: Warm and dry. LAB: White count 8050 from yesterday, hematocrit 35, platelet count 260,000. Chemistries: Blood sugar 361, 314, 337 and 2016. ASSESSMENT AND PLAN: Of note, I am probably going to let her go home. No significant new coronary lesions. Did not feel this is cardiac pain. Dr. Soriano has put her on some Carafate and he will follow her back in the office in about a month. Blood sugars continue her present regimen; they were running a little high in the hospital, but will continue her current medications. So, we will plan to discharge her. cc: Vasyl Barbosa MD
[2017-03-02 11:22] VITALS: BP 123/51
--- NOTE | 2017-03-02 11:37 | PROGRESS NOTE ---
DATE: 03/02/2017 SUBJECTIVE: This patient has been admitted with chest pain, epigastric pain, nausea, vomiting, and diarrhea. I saw her yesterday and at that time, she told me that she was going to get a cardiac catheterization. She actually had cardiac catheterization yesterday by Dr. Dean Grimaldo which showed several areas of vascular problems in the coronary arteries. However, her bypasses were all quite functional. He did not think that the lesions were found were significant enough to cause any kind of ischemia at this point. The patient is feeling much better today with relief of her nausea and also some relief of the epigastric and chest pain. The diarrhea also has improved. The patient already had a cholecystectomy. It is possible that the diarrhea is secondary to bile induced gastritis and possibly bile induced diarrhea. OBJECTIVE: Vital Signs: The temperature is 98.3 degrees, pulse rate is 74 per minute, respiratory rate is 18, blood pressure is 127/57. Skin: Warm and dry. HEENT: Mucous membranes are moist. Neck: Supple. There is no thyromegaly. Cardiology: Both heart sounds are heard. Rhythm is regular. No murmur. Lungs: Clear to percussion and auscultation. Abdomen: Soft, not distended. No area of tenderness except mild tenderness in the epigastrium and right upper quadrant. No masses felt. Bowel sounds are slightly hyperactive. Is and Os: This morning, she ate 100% of her breakfast which was a GI soft diet which is a low-fat, diabetic diet. IMPRESSION: Improvement in her symptoms. RECOMMENDATION: I will start Carafate 1 g a.c. and at bedtime for this patient. Since her cardiac workup is over and the patient is feeling better, I believe she could be discharged home. I discussed this matter with the patient's hospitalist, Dr. Barbosa, and he is discharging her home on Carafate 1 g four times a day a.c. and at bedtime. I will see her back in the office in 1 month. At that time, if she still has intractable diarrhea, we will plan to do a colonoscopy at that time. Patient is agreeable for that. cc: Vasyl Babrosa MD
[2017-03-02] MEDS ORDERED: CARAFATE LIQUID PO SCH (14:00)
--- NOTE | 2017-03-02 14:58 | PROGRESS NOTE ---
DATE: 03/02/2017 SUBJECTIVE: Ms. Romero has not any episodes of chest pain overnight. She denies any right groin pain. OBJECTIVE: Vital Signs: On physical examination afebrile. Heart rate is 75, blood pressure 123/51. General: Generally, no acute distress. Cardiovascular: She is in a regular rate and rhythm. She has no obvious murmurs. No S3. No lower extremity edema. She has no bruits in the right femoral region nor are there any masses. She has an intact left radial pulse. Chest: Exam is clear bilaterally. No increased work of breathing. Abdomen: Soft, nontender, nondistended. No obvious organomegaly. PERTINENT DATA: She has a no new laboratory data today. ASSESSMENT: Noncardiac chest pain. PLAN: The patient may be discharged later on today. We will refer her for basic metabolic panel next week to follow up on the catheterization. Otherwise, she can follow up with Dr. Perez in the near future. cc: Dean Grimaldo MD
--- NOTE | 2017-03-02 17:08 | DISCHARGE SUMMARY ---
ADMISSION DATE: 03/01/2017 DISCHARGE DATE: 03/02/2017 HOSPITAL COURSE: This is a 61-year-old with a history of coronary artery disease status post CABG. She has been having intermittent nausea, vomiting and diarrhea since her cholecystectomy earlier in the year, in November. She has questionable what sounds like some gastroparesis followed by Dr. Soriano. She has had several episodes of diarrhea on the day of admission and did not do well but then started developing some chest pain midsternal radiating to the left and to the back. The pain component was similar to the previous angina she experienced before she had her CABG. She was admitted and cardiac enzymes were unremarkable. Her chest pain seemed to dissipate. She did complain of GI symptoms, still some nausea. She underwent heart catheterization per Dr. Dean Grimaldo and he did not find any new lesions. She appears to have no significant lesions to suggest ischemic etiology. Dr. Soriano followed her. He did recommend she get a colonoscopy, she will follow up back in his office in a couple of weeks to pursue that, but felt she could go home on 03/02/2017. DISCHARGE MEDICATIONS: 1. Aspirin 81 mg a day. 2. Lipitor 40 mg a day. 3. Prinivil 10 mg a day. 4. Toprol-XL 25 mg a day. 5. Ranexa 500 mg p.o. b.i.d. 6. Carafate 1 g p.o. q.6 hours which she will take for another month. cc: Vasyl Barbosa MD
== END 2017-03-02 15:30 | disposition home or self-care (01) ==
LOC: ED 19:08 → 4N 19:08 → SUATTDRO 02-27 00:27 → 4N 02-27 00:55 → 3S 03-01 14:16 → SUATTDRO 03-01 15:00
PROVIDERS: ATTEND Emergency Medicine